=== PATIENT | female | born 1975 | race Caucasian/White ===

== ENCOUNTER 2020-07-31 00:44 | Outpatient (CLI) | payer BC, SELFPAY ==
--- NOTE | 2020-07-31 07:45 | DI.MAMMO_ITS ---
Exam(s) MAMMO SCREENING EXAM: MAMMO SCREENING CLINICAL HISTORY: screening,Z12.39. TECHNIQUE: Bilateral full field digital CC and MLO mammographic images were obtained with 3D tomosyn thesis and utilizing computer aided detection (CAD). COMPARISON: None. This is a baseline mammogram on this 44-year-old patient FINDINGS: There are punctate benign microcalcifications noted throughout both breasts. No significant radiograph findings in the right breast. In the most lateral aspect of the left breast there 2 small adjacent nodules noted, both measuring ap proximately 4-5 millimeters and located approximately 11 cm in from the nipple. No malignant-appeari ng microcalcification groups in this region or elsewhere in either breast. There is no significant architectural distortion nor skin thickening-retraction. IMPRESSION: No radiographic evidence of malignancy in the right breast. Eccentrically located 2 adjacent left breast nodules as described above. There is a possibly these a re subcutaneous. Recommend additional spot compression views and views with skin mole markers in machelle ce if there are skin moles. BI-RADS Category 0 - Assessment Incomplete: Need additional imaging evaluation Breast Density - Category B - Scattered areas of fibroglandular density Breast density Category C or D implies that the patient has dense breast tissue. Dense breast tissue can make it harder to find cancer on a mammogram. Dense breast tissue is also associated with an incr eased risk of breast cancer. This information about the result of the mammogram report was provided to the patient to raise their awareness. Use this report when you speak with the patient about their risks for breast cancer, which includes their family history. At that time, you may recommend additional screening tests (Ultrasoun d or MRI) as these tests may add significant information. A negative radiographic report should not delay biopsy if a dominant or clinically suspicious mass is present. Up to ten percent of cancers are not identified on mammography. A negative report may reinforce clinical impression. Adenosis and dense breasts may obscure an underlying neoplasm. False positive reports average 6 to 10%. Patient will receive a letter notifying them of these results.
== END 2020-07-31 01:04 ==
PROVIDERS: PCP Nurse Practitioner; Visit Provider Nurse Practitioner
DX: Z12.31 Encounter for screening mammogram for malignant neoplasm of breast (principal); R92.8 Other abnormal and inconclusive findings on diagnostic imaging of breast; N63.20 Unspecified lump in the left breast, unspecified quadrant
CPT/HCPCS: 77063; 77067

== ENCOUNTER 2020-07-31 03:03 | Outpatient (CLI) | payer BC, SELFPAY ==
[2020-07-31 13:02] LABS: Hemoglobin A1C 4.7 % (<5.7)
[2020-07-31 13:04] LABS: Calculated LDL 114 mg/dL (<100); Cholesterol 171 mg/dL (<200); HDL Cholesterol 47 mg/dL (40-60); Triglyceride 53 mg/dL (<150)
== END 2020-07-31 03:04 | disposition home or self-care (01) ==
PROVIDERS: PCP Nurse Practitioner; Visit Provider Nurse Practitioner
DX: Z13.1 Encounter for screening for diabetes mellitus (principal); Z13.6 Encounter for screening for cardiovascular disorders
CPT/HCPCS: 36415; 80061; 83036

== ENCOUNTER 2020-08-06 10:31 | Outpatient (REF) | payer BC, SELFPAY ==
--- NOTE | 2020-08-06 09:45 | PAPFT_PTH ---
PATIENT: Haily Rodriguez LOC: [facility] U#:[id number] AGE/SX: 44/F ROOM: RE08/06/[address]: César Eaton MD : [id number] BED: DIS: 08/06/2020 SPEC #: [id number] RECD: 08/06/20 18:38 STATUS: THELMANaida REQ #: [id number] PATRICIA: 08/06/20 09:[address]: César Eaton DEPT: [facility] Cytology RECD BY: Salome Bragg ENTERED: 08/06/20 18:38 SP TYPE: PAPFT SANJU DR: Tammy Peraza, PhD [employer] Tissues: 1 - CX/ENDOCX FOR PAP SMEARS Procedures: PAP THIN PREP/UVM Screening HPV DNA PROBE Comments: [id number]
== END 2020-08-06 10:32 | disposition home or self-care (01) ==
LOC: LBN 10:31
PROVIDERS: PCP Nurse Practitioner; Visit Provider Family Medicine
DX: Z12.4 Encounter for screening for malignant neoplasm of cervix (principal); Z11.51 Encounter for screening for human papillomavirus (HPV)
CPT/HCPCS: 88142; 87624

== ENCOUNTER 2020-08-16 02:41 | Outpatient (CLI) | payer BC, SELFPAY ==
--- NOTE | 2020-08-16 09:27 | DI.MAMMO_ITS ---
Exam(s) MG MAMMO SCREEN CALL BACK UNI EXAM: MAMMO SCREEN CALL BACK UNI CLINICAL HISTORY: F/U ABNL MAMMO, 2 ADJACENT LEFT BREAST NODULES TECHNIQUE: Mammograms were interpreted according to the usual protocol including computer analysis w ith CAD system, tomosynthesis and C-view imaging. COMPARISON: FINDINGS: Recent mammogram showed a nodule projected in inferior portion of the left breast on MLO view which w as suspected to be a skin lesion. On today's examination a mole is identified and marked and evaluat ed with a tangential view. This does indeed correspond to the nodule seen on the prior study. IMPRESSION: No intramammary mass identified. Routine screening examinations recommended yearly intervals in this age group according to the ACR guidelines. BI-RADS Category 1 - Negative Breast Density - Category B - Scattered areas of fibroglandular density
== END 2020-08-16 03:01 ==
PROVIDERS: PCP Nurse Practitioner; Visit Provider Nurse Practitioner
DX: Z12.31 Encounter for screening mammogram for malignant neoplasm of breast (principal); R92.8 Other abnormal and inconclusive findings on diagnostic imaging of breast; N63.20 Unspecified lump in the left breast, unspecified quadrant
CPT/HCPCS: 77063; 77067

== ENCOUNTER 2020-11-18 03:33 | Outpatient (CLI) | payer BC, SELFPAY ==
[2020-11-19 10:48] LABS: Varicella IgG Antibody Positive (See Note)
[2020-11-19 10:51] LABS: Mumps Antibody IgG Positive (See Note)
[2020-11-19 10:56] LABS: Rubella IgG Ab (UVM) Positive (See Note)
[2020-11-19 11:52] LABS: Measles IgG Antibody Equivocal (See Note)
[2020-11-19 12:59] LABS: HBs Antibody, Quant 9.1 mIU/mL (See Note); Hepatitis B Surface Ab Negative (See Note)
== END 2020-11-18 03:34 | disposition home or self-care (01) ==
PROVIDERS: PCP Nurse Practitioner; Visit Provider Nurse Practitioner Family
DX: Z11.59 Encounter for screening for other viral diseases (principal); Z01.84 Encounter for antibody response examination
CPT/HCPCS: 36415; 86706; 86787; 86735; 86762; 86765

== ENCOUNTER 2022-09-08 03:36 | Outpatient (CLI) | payer OTHER, SELFPAY ==
[2022-09-08 07:12] LABS: HCT 41.2 % (36.0-46.0); HGB 13.7 g/dL (11.2-15.7); MCH 31.5 pg (27.0-33.0); MCHC 33.3 % (32.0-36.0); MCV 95 fL (80-95); MPV 10.1 fL (8.0-11.0); Platelet Count 233 10^3/uL (130-400); RBC 4.35 10^6/uL (3.93-5.22); RDW 12.9 % (11.7-14.6); RDW-SD 45.2 fL; WBC 5.56 10^3/uL (4.4-10.8)
[2022-09-08 08:17] LABS: Anion Gap 3.6 mmol/L (3-11); BUN 13 mg/dL (7-18); CO2 32.4 mmol/L (21.0-32.0); CREATININE 0.7 mg/dL (0.55-1.02); Calcium 8.8 mg/dL (8.5-10.1); Calculated LDL 120 mg/dL (<100); Chloride 105 mmol/L (98-107); Cholesterol 183 mg/dL (<200); Estimated GFR 108.62 (mL/min/1.73m2); Glucose 96 mg/dL (74-106); HDL Cholesterol 54 mg/dL (40-60); Potassium 3.9 mmol/L (3.5-5.1); Sodium 141 mmol/L (136-145); TSH (W/Ref FT4) 1.72 uIU/mL (0.36-3.74); Triglyceride 46 mg/dL (<150)
== END 2022-09-08 03:37 | disposition home or self-care (01) ==
PROVIDERS: PCP Nurse Practitioner Family; Visit Provider Nurse Practitioner Family
DX: E66.9 Obesity, unspecified (principal); M65.332 Trigger finger, left middle finger; Z00.00 Encounter for general adult medical examination without abnormal findings
CPT/HCPCS: 36415; 80048; 80061; 85027; 84443

== ENCOUNTER 2022-09-14 00:49 | Outpatient (CLI) | payer OTHER, SELFPAY ==
--- NOTE | 2022-09-14 08:15 | DI.MAMMO_ITS ---
Exam(s) MAMMO SCREENING EXAM: MAMMO SCREENING CLINICAL HISTORY: screening, Z12.39. TECHNIQUE: Bilateral full field digital CC and MLO mammographic images were obtained with 3D tomosyn thesis and utilizing computer aided detection (CAD). COMPARISON: Prior mammograms were reviewed. FINDINGS: There has been no significant change in the appearance and distribution of the fibroglandular tissue. Left breast skin mole again noted. There are no new spiculated masses nor malignant appearing microcalcification groups. Stable punctate benign-appearing right breast microcalcifications are again noted. There is no significant architectural distortion nor skin thickening-retraction. IMPRESSION: No radiographic evidence of malignancy. Stable benign-appearing findings. BI-RADS Category 2 - Benign Findings Breast Density - Category B - Scattered areas of fibroglandular density Breast density Category C or D implies that the patient has dense breast tissue. Dense breast tissue can make it harder to find cancer on a mammogram. Dense breast tissue is also associated with an incr eased risk of breast cancer. This information about the result of the mammogram report was provided to the patient to raise their awareness. Use this report when you speak with the patient about their risks for breast cancer, which includes their family history. At that time, you may recommend additional screening tests (Ultrasoun d or MRI) as these tests may add significant information. A negative radiographic report should not delay biopsy if a dominant or clinically suspicious mass is present. Up to ten percent of cancers are not identified on mammography. A negative report may reinforce clinical impression. Adenosis and dense breasts may obscure an underlying neoplasm. False positive reports average 6 to 10%. Patient will receive a letter notifying them of these results.
== END 2022-09-14 01:09 ==
LOC: DI 00:49
PROVIDERS: PCP Nurse Practitioner Family; Visit Provider Nurse Practitioner Family
DX: Z12.31 Encounter for screening mammogram for malignant neoplasm of breast (principal)
CPT/HCPCS: 77063; 77067

== ENCOUNTER 2022-11-19 14:08 | Outpatient (CLI) | payer OTHER, SELFPAY ==
--- NOTE | 2022-11-19 13:45 | DI.RAD_ITS ---
Exam(s) XR HAND LT COMPLETE EXAM: XR HAND LT COMPLETE CLINICAL HISTORY: LEFT MIDDLE FINGER NODULE. TECHNIQUE: 2D digital imaging was performed. COMPARISON: No exams were available for comparison FINDINGS: 3 views No evidence of fracture or dislocation nor radiopaque foreign body. No soft tissue swelling nor soft tissue calcification. Bone density normal. No osseous lesions nor erosions evident. No significan t bone lesions IMPRESSION: No significant radiograph findings in the left hand. DATA REPOSITORY: RADIATION DOSE DELIVERED:
== END 2022-11-19 14:09 | disposition home or self-care (01) ==
LOC: DIORS 14:08
PROVIDERS: PCP Nurse Practitioner Family; Visit Provider Physician Assistant
DX: M65.332 Trigger finger, left middle finger (principal)
CPT/HCPCS: 73130

== ENCOUNTER → 2022-12-16 02:17 | Outpatient (CLI) | payer OTHER, SELFPAY ==
--- NOTE | 2022-12-16 06:45 | DI.MRI_ITS ---
Exam(s) MR UPPER EXTREMITY LT WO EXAM: MR UPPER EXTREMITY LT WO CLINICAL HISTORY: PAIN,?ganglion cyst,m67.442. TECHNIQUE: Multiplanar multisequence MRI was performed. Field of view includes the index finger thr ough little finger from the mid to distal metacarpal both to tips of the fingers. There is artifact on seen in the area of the thumb. COMPARISON: Films 19 November 2022 FINDINGS: BONES: There is no fracture or contusion pattern. No bony erosions. JOINTS: No joint effusions. TENDONS: Flexors: Unremarkable. Extensors: Unremarkable. MUSCLES: Unremarkable. SOFT TISSUES: A marker was placed over the area of concern at the ventral aspect of the base of the m iddle finger. Beneath the area marked, there is an elongated fluid collection measuring 12 millimete rs in length by 2 millimeters AP by 8 millimeters transverse. It lies directly superficial to the fl exor digitorum tendons. Could represent a small synovial cyst or ganglion. LIGAMENTS: Unremarkable. TRIANGULAR FIBROCARTILAGE: Unremarkable. IMPRESSION: Small ganglion cyst at the ventral base of the middle finger adjacent to the flexor digitorum tendon. DATA REPOSITORY:
== END ==
PROVIDERS: PCP Nurse Practitioner Family; Visit Provider Student in an Organized Health Care Education/Training Program
DX: M67.442 Ganglion, left hand (principal)
CPT/HCPCS: 73218

== ENCOUNTER 2023-01-01 13:24 | Day surgery (SDC) | payer OTHER, SELFPAY ==
--- NOTE | 2023-01-01 07:25 | W.PM.DSUDISC ---
Date of service: 01/01/23 Time of Service: 16:35 Discharge Plan Disposition Patient Disposition: Home Condition: Stable Discharge Details Attending Provider: Collin Bynum Primary Care Provider: Sandra Gardner Home Meds and New Rx's Prescriptions: Continued ibuprofen 200 mg tablet 200 mg PO Q6H PRN Discharge Instructions Additional Instructions: Surgery: Left middle finger ganglion cyst excision and trigger release Activity: Protect hand for a few weeks. Gently increase finger motion and hand gripping to prevent stiffness. Recommend elevation to minimize swelling and discomfort. Prescriptions: None Resume home medicines, use [id number] Tylenol (acetaminophen) as needed for mild pain and ibuprofen (Motrin) or naproxen (Aleve) as needed for moderate to severe pain and swelling. Dressings: Leave dressing in place for 3 days. May then remove and leave open to air or cover incision with Band-Aid. May get wet after 5 days. Follow-up: 10-[address] Bynum Please call the office during business hours with any questions or concerns. Discharge Orders Discharge Orders: Discharge Order (Routine); Ordered 01/01/23 Ordered By: Collin Bynum DS: Diagnosis Discharge Diagnosis (1) Ganglion cyst of flexor tendon sheath of finger of left hand: Status: Acute (2) Trigger middle finger of left hand: Status: Acute
--- NOTE | 2023-01-01 07:27 | ROE_ITS ---
Date of service: 01/01/23 Time of Service: 16:00 Operative Note Operative Note DATE OF PROCEDURE: 01/01/23 PRE-OP DIAGNOSIS: 1. Left middle finger trigger finger 2. Ganglion cyst left middle finger flexor tendon sheath PROCEDURE: Left hand 1. Middle finger trigger release, CPT# 06035 2. Ganglion cyst excision, CPT# 90244 SURGEON: Collin Bynum [employer]MENT[employer] CONSERVATION PROFESSOR: None None ANESTHESIA TYPE: Local By Surgeon Refer to Anesthesia Record Indications: Please see complete medical record for details. Procedure Description: In the operating room, the patient was positioned supine on the stretcher. All bony prominences were padded. Preoperative antibiotics were omitted. The correct patient, procedure, and side of the procedure were all verified prior to beginning. Local anesthesia was induced about the site with 7cc of 1% lidocaine containing epinephrine buffered with 1 cc of sodium bicarbonate. The Left hand was prepped and draped in the usual sterile fashion. Proper analgesia was confirmed. A small volar longitudinal approach was made overlying the middle finger MCP joint with slight additional extension distally to the palpable cyst location with about 5 more cc 1% lidocaine containing epinephrine infiltrated about the field. Soft tissues were swept to the sides and retracted to expose the A1 marcos. There was obvious ganglion cyst bulging out between the distal margin of the A1 marcos. It was removed with a rongeur. The A1 marcos release was started distally and completed proximally with tenotomy scissors. Care was taken to protect the flexor tendons. The tendons were inspected and showed mild degeneration beneath the A1 marcos, but no significant tearing, and no other fraying or degenerative changes more distally. Spreading dissection was then carried distally with the A2 marcos margin exposed and obvious pea sized remainder or separate ganglion cyst margins defined and then removed in entirety with rongeur appropriate flexor tendon excursion was confirmed. Flattened cystic material was irrigated from the wound. The patient readily demonstrated full range of motion of the finger without triggering. There was no additional palpable or visible cyst. The small incision was irrigated and then dried. Hemostasis was appropriate. The incision was closed using 3-0 nylon in a horizontal mattress fashion. Xeroform was applied followed by gauze and the hand was gently compressed with an Wood bandage. The patient tolerated local anesthesia without complication and was transferred out of the operating room in a stable condition.
[2023-01-01 13:46] VITALS: BP 134/77; PULSE 72; RESP 16; TEMP 36.6; O2SAT 99
[2023-01-01] MEDS: Lidocaine 1% Multi-Dose W/EPI 1/100,000 50 ML VIAL (15:40)
[2023-01-01] MEDS: Sodium Bicarbonate 50 MEQ/50 ML VIAL (15:40)
[2023-01-01 16:34] VITALS: BP 117/69; PULSE 68; RESP 16; TEMP 36.8; O2SAT 99
== END 2023-01-01 16:57 | disposition home or self-care (01) ==
PROVIDERS: PCP Nurse Practitioner Family; Visit Provider Student in an Organized Health Care Education/Training Program
PROC: (CPT 26055; principal; 2023-01-01 14:30)
PROC: (CPT 26160; 2023-01-01 14:30)
DX: M67.442 Ganglion, left hand (principal); M65.332 Trigger finger, left middle finger
CPT/HCPCS: 26160; 26055

== ENCOUNTER 2023-11-08 02:09 | Outpatient (CLI) | payer BC, SELFPAY ==
--- NOTE | 2023-11-08 13:15 | DI.MAMMO_ITS ---
Exam(s) MAMMO SCREENING EXAM: MAMMO SCREENING CLINICAL HISTORY: screening, Z12.39 TECHNIQUE: Bilateral full field digital CC and MLO mammographic images were obtained with 3D tomosyn thesis and utilizing computer aided detection (CAD). COMPARISON: Available for comparison. FINDINGS: Masses/Architectural Distortion: None seen. Microcalcifications: No suspicious pleomorphic-type are seen. Skin Thickening/Nipple Retraction: None. IMPRESSION: 1. No significant interval change with no specific features of malignancy noted. 2. Unless there is more urgent need, screening mammography is recommended, as per [place] [employer] guidelines. BI-RADS Category 1 - Negative Breast Density - Category B - Scattered areas of fibroglandular density Breast density category C or D implies that the patient has dense breast tissue. Dense breast tissue is very common and is not abnormal but dense breast tissue can make it harder to find cancer on a ma mmogram. Also, dense breast tissue may increase their breast cancer risk. This information about the result of the mammogram report was provided to the patient to raise their awareness. Use this report when you speak with the patient about their risks for breast cancer, which includes their family hist ory. At that time, you may recommend for more screening tests (Ultrasound or MRI) as they might be us eful based on their risk. A negative radiographic report should not delay biopsy if a dominant or clinically suspicious mass is present. Up to ten percent of cancers are not identified on mammography. A negative report may reinforce clinical impression. Adenosis and dense breasts may obscure an underlying neoplasm. False positive reports average 6 to 10%. Patient will receive a letter notifying them of these results.
== END 2023-11-08 02:29 ==
LOC: DI 02:09
PROVIDERS: PCP Nurse Practitioner Family; Visit Provider Nurse Practitioner Family
DX: Z12.31 Encounter for screening mammogram for malignant neoplasm of breast (principal)
CPT/HCPCS: 77063; 77067